=== PATIENT | male | born 1930 | race Caucasian/White ===

== ENCOUNTER → 2017-12-29 | Outpatient (REF) | payer MEDICARE, BC ==
[2017-12-29 18:30] LABS: VITAMIN B12 LEVEL 407 PG/ML (247-911)
== END ==
LOC: M LAB REF 17:28
DX: D64.9 Anemia, unspecified (principal)
CPT/HCPCS: 82607

== ENCOUNTER 2022-04-16 01:59 | Inpatient (IN) | payer BC, MEDICARE ==
[~2022-04-16] VITALS: Ht 177.8 cm; Wt 65.0 kg
[2022-04-16 01:45] VITALS: BP 162/60
[2022-04-16] MEDS ORDERED: HYDROMORPHONE HCL 0.5 MG/ 0.5 ML SYRINGE IV PRN (03:10)
[2022-04-16] MEDS ORDERED: NS 1,000 ML IV SCH (03:10)
[2022-04-16] MEDS ORDERED: ROSU20TA5 PO (03:16)
[2022-04-16] MEDS ORDERED: PROB500T29 PO (03:16)
[2022-04-16] MEDS ORDERED: ENAL1TAB50 PO (03:16)
[2022-04-16] MEDS ORDERED: BISO5TAB14 PO (03:16)
[2022-04-16] MEDS ORDERED: HOME MED LIST COMPLETE! XX SCH (03:20)
[2022-04-16 03:42] LABS: HEMATOCRIT 39.8 % (42.0-52.0); HEMOGLOBIN 12.8 g/dl (13.5-17.5); MEAN CORPUSCULAR HEMOGLOBIN 32.8 pg (27.0-33.0); MEAN CORPUSCULAR HGB CONC 32.2 g/dl (32.0-36.5); MEAN CORPUSCULAR VOLUME 102.1 fl (80.0-96.0); PLATELET COUNT, AUTOMATED 124 10^3/uL (150-450); WHITE BLOOD COUNT 5.7 10^3/uL (4.0-10.0)
[2022-04-16 04:14] LABS: ALBUMIN 2.7 G/DL (3.2-5.2); BILIRUBIN,TOTAL 1.6 MG/DL (0.3-1.2); CALCIUM LEVEL 8.4 MG/DL (8.3-10.6); CREATININE FOR GFR 1.22 MG/DL (0.70-1.30); GLOMERULAR FILTRATION RATE 59.5 (>35); POTASSIUM SERUM 4.2 MMOL/L (3.5-5.1); TOTAL PROTEIN 5.8 G/DL (5.7-8.2)
[2022-04-16 04:16] VITALS: BP 154/67
[2022-04-16] MEDS ORDERED: cefTRIAXone SOD 1 GM in D5W MINI-BAG PLUS 50 ML IV SCH (06:00)
[2022-04-16 07:22] VITALS: BP 121/56
[2022-04-16] MEDS: TAMSULOSIN 0.4 MG CAP PO SCH ×2 (10:47→20:07)
[2022-04-16 12:00] VITALS: BP 170/72
[2022-04-16] MEDS ORDERED: amLODIPine 5 MG TAB PO ONE (14:00)
[2022-04-16] MEDS: ROSUVASTATIN 10 MG TAB (CRESTOR) PO SCH (15:31)
[2022-04-16] MEDS: ENALAPRIL MALEATE 10 MG TAB PO SCH (15:31)
[2022-04-16] MEDS: PROBENECID 500 MG TAB PO SCH (15:31)
[2022-04-16 16:08] VITALS: BP 134/71
[2022-04-16] MEDS: amLODIPine 5 MG TAB PO SCH (17:44)
[2022-04-16] MEDS: HEPARIN SOD (PORCINE) 5000UNITS/ML 1ML VIAL/SYRINGE SC SCH (20:07)
[2022-04-16 20:51] VITALS: BP 150/64
[2022-04-17] MEDS ORDERED: RAMELTEON 8 MG TAB (ROZEREM) PO ONE (03:00)
[2022-04-17 03:56] VITALS: BP 120/64
[2022-04-17 05:39] LABS: HEMATOCRIT 37.6 % (42.0-52.0); HEMOGLOBIN 11.9 g/dl (13.5-17.5); MEAN CORPUSCULAR HEMOGLOBIN 32.3 pg (27.0-33.0); MEAN CORPUSCULAR HGB CONC 31.6 g/dl (32.0-36.5); MEAN CORPUSCULAR VOLUME 102.2 fl (80.0-96.0); PLATELET COUNT, AUTOMATED 112 10^3/uL (150-450); RED BLOOD COUNT 3.68 10^6/uL (4.30-6.10); WHITE BLOOD COUNT 10.2 10^3/uL (4.0-10.0)
[2022-04-17 07:22] LABS: ALBUMIN 2.8 G/DL (3.2-5.2); ALKALINE PHOSPHATASE 77 U/L (46-116); ALT/SGPT 18 U/L (7.0-40); AST/SGOT 36 U/L (<34); BILIRUBIN,DIRECT 0.7 MG/DL (<0.4); BILIRUBIN,TOTAL 1.6 MG/DL (0.3-1.2); BLOOD UREA NITROGEN 36 MG/DL (9-23); CALCIUM LEVEL 8.3 MG/DL (8.3-10.6); CARBON DIOXIDE LEVEL 24 MMOL/L (20-31); CHLORIDE LEVEL 110 MMOL/L (98-107); GLOMERULAR FILTRATION RATE > 60.0 (>35); GLUCOSE, FASTING 122 MG/DL (74-106); MAGNESIUM LEVEL 1.9 MG/DL (1.8-2.4); PHOSPHORUS LEVEL 2.9 MG/DL (2.4-5.1); POTASSIUM SERUM 4.4 MMOL/L (3.5-5.1); SODIUM LEVEL 142 MMOL/L (136-145); TOTAL PROTEIN 5.6 G/DL (5.7-8.2)
[2022-04-17 08:13] VITALS: BP 121/60
[2022-04-17] MEDS: TAMSULOSIN 0.4 MG CAP PO SCH ×2 (10:00→20:19)
[2022-04-17] MEDS: ROSUVASTATIN 10 MG TAB (CRESTOR) PO SCH (10:01)
[2022-04-17] MEDS: amLODIPine 5 MG TAB PO SCH (10:01)
[2022-04-17] MEDS: PROBENECID 500 MG TAB PO SCH (10:01)
[2022-04-17] MEDS: ENALAPRIL MALEATE 10 MG TAB PO SCH (10:01)
[2022-04-17] MEDS: HEPARIN SOD (PORCINE) 5000UNITS/ML 1ML VIAL/SYRINGE SC SCH ×2 (10:02→20:19)
[2022-04-17 11:50] VITALS: BP 135/62
[2022-04-17 16:39] VITALS: BP 132/60
[2022-04-17 20:00] VITALS: BP 126/57
[2022-04-18] VITALS (7 sets, daily range): BP systolic 110–128; BP diastolic 54–79
[2022-04-18 06:13] LABS: BASO % 0.3 % (0.0-1.0); EOS # 0.1 10^3/uL (0.0-0.5); EOS % 1.4 % (0.0-3.0); HEMATOCRIT 38.3 % (42.0-52.0); HEMOGLOBIN 12.4 g/dl (13.5-17.5); LYMPH # 1.1 10^3/uL (1.5-5.0); LYMPH % 14.6 % (24.0-44.0); MEAN CORPUSCULAR HEMOGLOBIN 32.7 pg (27.0-33.0); MEAN CORPUSCULAR HGB CONC 32.4 g/dl (32.0-36.5); MEAN CORPUSCULAR VOLUME 101.1 fl (80.0-96.0); MONO # 0.5 10^3/uL (0.0-0.8); MONO % 7.5 % (2.0-8.0); NEUTROPHILS # 5.5 10^3/uL (1.5-8.5); NEUTROPHILS % 75.9 % (36.0-66.0); PLATELET COUNT, AUTOMATED 100 10^3/uL (150-450); RED BLOOD COUNT 3.79 10^6/uL (4.30-6.10); WHITE BLOOD COUNT 7.2 10^3/uL (4.0-10.0)
[2022-04-18 06:50] LABS: ALBUMIN 2.5 G/DL (3.2-5.2); BILIRUBIN,TOTAL 1.5 MG/DL (0.3-1.2); CALCIUM LEVEL 8.6 MG/DL (8.3-10.6); CREATININE FOR GFR 1.22 MG/DL (0.70-1.30); GLOMERULAR FILTRATION RATE 59.5 (>35); POTASSIUM SERUM 4.4 MMOL/L (3.5-5.1); TOTAL PROTEIN 5.3 G/DL (5.7-8.2)
[2022-04-18] MEDS: HEPARIN SOD (PORCINE) 5000UNITS/ML 1ML VIAL/SYRINGE SC SCH ×2 (09:52→20:32)
[2022-04-18] MEDS: ROSUVASTATIN 10 MG TAB (CRESTOR) PO SCH (09:52)
[2022-04-18] MEDS: amLODIPine 5 MG TAB PO SCH (09:53)
[2022-04-18] MEDS: TAMSULOSIN 0.4 MG CAP PO SCH ×2 (09:53→20:32)
[2022-04-18] MEDS: PROBENECID 500 MG TAB PO SCH (09:53)
[2022-04-18] MEDS: ENALAPRIL MALEATE 10 MG TAB PO SCH (09:53)
[2022-04-19] VITALS: BP 131/55
[2022-04-19 04:00] VITALS: BP 130/59
[2022-04-19 06:34] LABS: BASO % 0.4 % (0.0-1.0); EOS # 0.1 10^3/uL (0.0-0.5); EOS % 1.6 % (0.0-3.0); HEMATOCRIT 37.2 % (42.0-52.0); HEMOGLOBIN 12.2 g/dl (13.5-17.5); MEAN CORPUSCULAR HEMOGLOBIN 33.1 pg (27.0-33.0); MEAN CORPUSCULAR HGB CONC 32.8 g/dl (32.0-36.5); MEAN CORPUSCULAR VOLUME 100.8 fl (80.0-96.0); MONO # 0.4 10^3/uL (0.0-0.8); MONO % 6.2 % (2.0-8.0); NEUTROPHILS # 5.3 10^3/uL (1.5-8.5); NEUTROPHILS % 76.4 % (36.0-66.0); PLATELET COUNT, AUTOMATED 108 10^3/uL (150-450); RED BLOOD COUNT 3.69 10^6/uL (4.30-6.10); WHITE BLOOD COUNT 6.9 10^3/uL (4.0-10.0)
[2022-04-19 07:06] LABS: BLOOD UREA NITROGEN 37 MG/DL (9-23); CALCIUM LEVEL 8.3 MG/DL (8.3-10.6); CARBON DIOXIDE LEVEL 25 MMOL/L (20-31); CHLORIDE LEVEL 109 MMOL/L (98-107); CREATININE FOR GFR 1.11 MG/DL (0.70-1.30); GLOMERULAR FILTRATION RATE > 60.0 (>35); GLUCOSE, FASTING 105 MG/DL (74-106); POTASSIUM SERUM 4.2 MMOL/L (3.5-5.1); SODIUM LEVEL 140 MMOL/L (136-145)
[2022-04-19 07:47] VITALS: BP 120/61
[2022-04-19] MEDS: ROSUVASTATIN 10 MG TAB (CRESTOR) PO SCH (09:36)
[2022-04-19] MEDS: PROBENECID 500 MG TAB PO SCH (09:36)
[2022-04-19] MEDS: TAMSULOSIN 0.4 MG CAP PO SCH ×2 (09:37→21:33)
[2022-04-19] MEDS: ENALAPRIL MALEATE 10 MG TAB PO SCH (09:37)
[2022-04-19] MEDS: HEPARIN SOD (PORCINE) 5000UNITS/ML 1ML VIAL/SYRINGE SC SCH ×2 (09:37→21:33)
[2022-04-19] MEDS: amLODIPine 5 MG TAB PO SCH (09:42)
[2022-04-19 12:45] VITALS: BP 132/59
[2022-04-19 16:10] VITALS: BP 120/57
[2022-04-19 20:00] VITALS: BP 134/61
[2022-04-20] VITALS: BP 123/60
[2022-04-20 04:00] VITALS: BP 137/65
[2022-04-20 08:00] VITALS: BP 137/61
[2022-04-20] MEDS: ROSUVASTATIN 10 MG TAB (CRESTOR) PO SCH (08:06)
[2022-04-20] MEDS: PROBENECID 500 MG TAB PO SCH (08:06)
[2022-04-20] MEDS: HEPARIN SOD (PORCINE) 5000UNITS/ML 1ML VIAL/SYRINGE SC SCH ×2 (08:06→20:20)
[2022-04-20] MEDS: TAMSULOSIN 0.4 MG CAP PO SCH ×2 (08:06→20:20)
[2022-04-20] MEDS: ENALAPRIL MALEATE 10 MG TAB PO SCH (08:11)
[2022-04-20] MEDS: amLODIPine 5 MG TAB PO SCH (08:11)
[2022-04-20 11:39] VITALS: BP 123/58
[2022-04-20 16:22] VITALS: BP 126/59
[2022-04-20 20:01] VITALS: BP 109/53
[2022-04-21] VITALS: BP 127/62
[2022-04-21 04:00] VITALS: BP 112/56
[2022-04-21 05:44] LABS: HEMATOCRIT 35.3 % (42.0-52.0); HEMOGLOBIN 11.4 g/dl (13.5-17.5); MEAN CORPUSCULAR HEMOGLOBIN 32.9 pg (27.0-33.0); MEAN CORPUSCULAR HGB CONC 32.3 g/dl (32.0-36.5); MEAN CORPUSCULAR VOLUME 101.7 fl (80.0-96.0); PLATELET COUNT, AUTOMATED 124 10^3/uL (150-450); RED BLOOD COUNT 3.47 10^6/uL (4.30-6.10); WHITE BLOOD COUNT 5.9 10^3/uL (4.0-10.0)
[2022-04-21 06:13] LABS: CREATININE FOR GFR 1.29 MG/DL (0.70-1.30); GLOMERULAR FILTRATION RATE 55.8 (>35); PHOSPHORUS LEVEL 2.5 MG/DL (2.4-5.1); POTASSIUM SERUM 4.8 MMOL/L (3.5-5.1)
[2022-04-21 07:49] VITALS: BP 126/58
[2022-04-21] MEDS: TAMSULOSIN 0.4 MG CAP PO SCH ×2 (09:23→21:05)
[2022-04-21] MEDS: HEPARIN SOD (PORCINE) 5000UNITS/ML 1ML VIAL/SYRINGE SC SCH ×2 (09:23→21:07)
[2022-04-21] MEDS: ROSUVASTATIN 10 MG TAB (CRESTOR) PO SCH (09:23)
[2022-04-21] MEDS: PROBENECID 500 MG TAB PO SCH (09:23)
[2022-04-21] MEDS: ENALAPRIL MALEATE 10 MG TAB PO SCH (09:24)
[2022-04-21] MEDS: amLODIPine 5 MG TAB PO SCH (09:26)
[2022-04-21 12:03] VITALS: BP 125/58
[2022-04-21 16:05] VITALS: BP 112/51
[2022-04-21 20:17] VITALS: BP 127/57
[2022-04-22 00:22] VITALS: BP 104/51
[2022-04-22] MEDS ORDERED: ACETAMINOPHEN TAB 650MG DOSE (2X325MG) PO PRN (01:20)
[2022-04-22 04:00] VITALS: BP 127/58
[2022-04-22 07:53] VITALS: BP 145/55
[2022-04-22] MEDS: PROBENECID 500 MG TAB PO SCH (08:35)
[2022-04-22] MEDS: HEPARIN SOD (PORCINE) 5000UNITS/ML 1ML VIAL/SYRINGE SC SCH ×2 (08:35→21:30)
[2022-04-22] MEDS: amLODIPine 5 MG TAB PO SCH (08:36)
[2022-04-22] MEDS: ROSUVASTATIN 10 MG TAB (CRESTOR) PO SCH (08:36)
[2022-04-22] MEDS: ENALAPRIL MALEATE 10 MG TAB PO SCH (08:36)
[2022-04-22] MEDS: TAMSULOSIN 0.4 MG CAP PO SCH ×2 (08:36→21:30)
[2022-04-22 08:40] LABS: HEMATOCRIT 34.5 % (42.0-52.0); HEMOGLOBIN 11.3 g/dl (13.5-17.5); MEAN CORPUSCULAR HEMOGLOBIN 33.2 pg (27.0-33.0); MEAN CORPUSCULAR HGB CONC 32.8 g/dl (32.0-36.5); MEAN CORPUSCULAR VOLUME 101.5 fl (80.0-96.0); PLATELET COUNT, AUTOMATED 128 10^3/uL (150-450); WHITE BLOOD COUNT 6.1 10^3/uL (4.0-10.0)
[2022-04-22 08:54] LABS: CALCIUM LEVEL 8.2 MG/DL (8.3-10.6); CREATININE FOR GFR 1.35 MG/DL (0.70-1.30); POTASSIUM SERUM 4.7 MMOL/L (3.5-5.1)
[2022-04-22 12:07] VITALS: BP 122/57
[2022-04-23 04:00] VITALS: BP 133/58
[2022-04-23] MEDS: amLODIPine 5 MG TAB PO SCH (08:18)
[2022-04-23] MEDS: TAMSULOSIN 0.4 MG CAP PO SCH ×2 (08:24→20:03)
[2022-04-23] MEDS: PROBENECID 500 MG TAB PO SCH (08:24)
[2022-04-23] MEDS: HEPARIN SOD (PORCINE) 5000UNITS/ML 1ML VIAL/SYRINGE SC SCH ×2 (08:24→20:03)
[2022-04-23] MEDS: ROSUVASTATIN 10 MG TAB (CRESTOR) PO SCH (08:24)
[2022-04-23] MEDS: ENALAPRIL MALEATE 10 MG TAB PO SCH (09:00)
[2022-04-23 20:00] VITALS: BP 126/59
[2022-04-24 08:09] VITALS: BP 120/75
[2022-04-24] MEDS: HEPARIN SOD (PORCINE) 5000UNITS/ML 1ML VIAL/SYRINGE SC SCH (08:46)
[2022-04-24] MEDS: ROSUVASTATIN 10 MG TAB (CRESTOR) PO SCH (08:47)
[2022-04-24] MEDS: TAMSULOSIN 0.4 MG CAP PO SCH (08:47)
[2022-04-24] MEDS: PROBENECID 500 MG TAB PO SCH (08:47)
[2022-04-24] MEDS: amLODIPine 5 MG TAB PO SCH (09:00)
[2022-04-24 09:01] VITALS: BP 120/75
[2022-04-24] MEDS: ENALAPRIL MALEATE 10 MG TAB PO SCH (09:01)
[2022-04-24] MEDS ORDERED: FLOM0.4C39 PO (09:34)
== END 2022-04-24 13:31 | DRG 309 ==
LOC: M ED INP 01:59 → M PCU 02:11
PROVIDERS: ADMIT Internal Medicine; ATTEND Internal Medicine
DX: I49.5 Sick sinus syndrome (principal); N20.1 Calculus of ureter; F05 Delirium due to known physiological condition; I48.91 Unspecified atrial fibrillation; I10 Essential (primary) hypertension; E78.5 Hyperlipidemia, unspecified; E87.8 Other disorders of electrolyte and fluid balance, not elsewhere classified; Z79.899 Other long term (current) drug therapy; Z20.822 Contact with and (suspected) exposure to COVID-19; D69.6 Thrombocytopenia, unspecified; R33.9 Retention of urine, unspecified; Z66 Do not resuscitate